=== PATIENT | female | born 1995 | race Caucasian/White ===

== ENCOUNTER → 2019-12-08 10:51 | Outpatient (BNVA) | payer SELFPAY | PROVIDERS: Visit Provider Nurse Practitioner Family | DX: J02.9 Acute pharyngitis, unspecified (principal) | CPT/HCPCS: 87071; 87880 ==

== ENCOUNTER → 2020-03-22 11:35 | Outpatient (BNVA) | payer SELFPAY | PROVIDERS: Visit Provider Nurse Practitioner Women's Health | DX: Z12.4 Encounter for screening for malignant neoplasm of cervix (principal); Z30.432 Encounter for removal of intrauterine contraceptive device | CPT/HCPCS: 88175 ==

== ENCOUNTER → 2020-04-18 09:34 | Outpatient (BNVA) | payer MEDICAID, SELFPAY | PROVIDERS: Visit Provider Registered Nurse | DX: Z32.01 Encounter for pregnancy test, result positive (principal) | CPT/HCPCS: 81025 ==

== ENCOUNTER → 2020-06-07 09:58 | Outpatient (BNVA) | payer MEDICAID, SELFPAY | PROVIDERS: Visit Provider Obstetrics & Gynecology | DX: O09.899 Supervision of other high risk pregnancies, unspecified trimester (principal) | CPT/HCPCS: 80053; 80307; 84315; 85027; 86592; 86762; 86803; 86850; 86900; 87340; 87806 ==

== ENCOUNTER → 2020-06-21 13:01 | Outpatient (BNVA) | payer MEDICAID, SELFPAY | PROVIDERS: Visit Provider Obstetrics & Gynecology | DX: O09.899 Supervision of other high risk pregnancies, unspecified trimester (principal); B37.3 Candidiasis of vulva and vagina; O21.9 Vomiting of pregnancy, unspecified; N89.8 Other specified noninflammatory disorders of vagina | CPT/HCPCS: 84315; 87210; 87491; 87591 ==

== ENCOUNTER → 2020-08-06 15:05 | Outpatient (BNVA) | payer MEDICAID, SELFPAY | PROVIDERS: Visit Provider Obstetrics & Gynecology | DX: Z34.92 Encounter for supervision of normal pregnancy, unspecified, second trimester (principal); Z3A.20 20 weeks gestation of pregnancy | CPT/HCPCS: 76805 ==

== ENCOUNTER → 2020-10-01 09:22 | Outpatient (BNVA) | payer MEDICAID, SELFPAY | PROVIDERS: Visit Provider Obstetrics & Gynecology | DX: O09.899 Supervision of other high risk pregnancies, unspecified trimester (principal) | CPT/HCPCS: 82950; 84315; 85027 ==

== ENCOUNTER 2020-11-12 10:21 | Outpatient (CLI) | payer MEDICAID, SELFPAY ==
[2020-11-12 10:34] VITALS: BP 108/68; PULSE 80
[2020-11-12 10:37] VITALS: RESP 16
[2020-11-12 10:49] VITALS: BP 98/58; PULSE 86
== END 2020-11-12 10:58 | disposition home or self-care (01) ==
LOC: OPOB 10:27 → OBGYN 10:27
PROVIDERS: Visit Provider Obstetrics & Gynecology
DX: O26.899 Other specified pregnancy related conditions, unspecified trimester (principal); Z3A.00 Weeks of gestation of pregnancy not specified; Z87.59 Personal history of other complications of pregnancy, childbirth and the puerperium
CPT/HCPCS: 59025; 84315

== ENCOUNTER → 2020-11-26 11:01 | Outpatient (BNVA) | payer MEDICAID, SELFPAY | PROVIDERS: Visit Provider Obstetrics & Gynecology | DX: O09.899 Supervision of other high risk pregnancies, unspecified trimester (principal); O09.293 Supervision of pregnancy with other poor reproductive or obstetric history, third trimester; N89.8 Other specified noninflammatory disorders of vagina; B37.3 Candidiasis of vulva and vagina | CPT/HCPCS: 84315; 87081; 87210 ==

== ENCOUNTER → 2020-11-30 13:15 | Outpatient (BNVA) | payer MEDICAID, SELFPAY | PROVIDERS: Visit Provider Obstetrics & Gynecology | DX: Z20.822 Contact with and (suspected) exposure to COVID-19 (principal) | CPT/HCPCS: 87635 ==

== ENCOUNTER 2020-12-05 08:11 | Day surgery (SDC) | payer MEDICAID, SELFPAY ==
[2020-12-05] VITALS (13 sets, daily range): BP systolic 106–136; BP diastolic 55–78; PULSE 65–96; RESP 16; TEMP 36.7; O2SAT 98; BMI 26.3
[2020-12-05 08:46] LABS: Basophils % 0.3 %; Eosinophils # 0.1 10^3/uL (0.0-0.8); Eosinophils % 0.4 %; Hematocrit 36.9 % (37.0-47.0); Lymphocytes % 12.8 %; Mean Corpuscular HGB Conc 32.5 g/dL (30.0-36.0); Mean Corpuscular Hemoglobin 29.6 pg (28.0-34.0); Mean Corpuscular Volume 91.1 fL (81-99); Mean Platelet Volume 11.6 fL (7.4-10.4); Monocytes # 1.1 10^3/uL (0.2-0.9); Monocytes % 6.6 %; Neutrophils # 12.52 10^3/uL (1.8-7.7); Neutrophils % 79.2 %; Nucleated Red Blood Cells % 0 %; Platelet Count 192 10^3/cmm (130-400); Red Blood Count 4.05 10^6/uL (4.1-5.3); Red Cell Distribution Width 13.2 % (12.1-15.1); White Blood Count 15.8 10^3/uL (4.0-10.0)
[2020-12-05] MEDS: terbutaline 1 mg/mL INJ 0.25 MG SUBCUT (10:16)
--- NOTE | 2020-12-05 10:28 | P.ANESASSM_ITS ---
Pre-Anesthetic Assessment Pre-Anesthetic Assessment: Height/Weight: Height 1.57 m Weight 65.317 kg Pulse Resp BP 65 16 106/59 12/05/20 10:06 12/05/20 08:25 12/05/20 10:06 Preop Diagnosis: breech presentation Proposed Procedure: Operation Date: 12/05/20 10:00 Proposed Procedures p Cephalic Eversion 64476 O32.1XX0(Not Applicable) - Timothy Guido MD Familial anesthetic complications: none Was Beta Carlos taken within 24 hours: N/A Was Clonidine taken within 24 hours: N/A Last intake: meal 1800 12/05/20 fluids 202912/05/20 Social: Social History: Tobacco Exam: Pre-Anes Outpt Exam: alert, oriented x 3 and regular rate & rhythm Airway: Submandibular: WNL Cervical ROM: WNL MP: 1 Dentition: Other (tongue piercing.) History/ROS: No significant history except as noted Pulmonary: Pulmonary: None reported CV/HEM: CV/HEM: None reported : : None reported Hepatic: Hepatic: None reported GI: GI: None reported Metabolic: Metabolic: None reported Musc/skel: Musc/skel: None reported Neuropsych: Neuropsych: None reported Anesthetic Plan: ASA status: 2 Anesthesia: Anesthesia Evaluation Risk of > 500 ml blood loss (7ml/kg in children): Yes, adequate IV access and fluids planned PFSH Anesthesia PFSH: Medical History Depression No pertinent past medical history neghx: htn,dm,thyroid,dvt/pe,herpes Denies any previous partner hx of herpes Surgical History No pertinent past surgical history Family History Grandfather Hypertension Paternal grandfather Social History Smoking and tobacco status: current some day smoker cigarettes Packs smoked per day: 1 [ Other cigarette details: Started age 14 ] Alcohol intake: current Substance/Drug Use: never Additional social history: - Tobacco use: Current everyday smoker; 1pk daily Alcohol use: Social Drug use: Denies Female Reproductive History: : 3 Data Anesthesia CBC & Chem 7: 12/05/20 08:35 Other Labs: Laboratory Results - last 48 hr 12/05/20 08:35 WBC 15.8 H RBC 4.05 L Hgb 12.0 Hct 36.9 L MCV 91.1 MCH 29.6 MCHC 32.5 RDW 13.2 Plt Count 192 MPV 11.6 H Neut % (Auto) 79.2 Lymph % (Auto) 12.8 [place] % (Auto) 6.6 Eos % (Auto) 0.4 Baso % (Auto) 0.3 Neut # (Auto) 12.52 H Lymph # (Auto) 2.0 [place] # (Auto) 1.1 H Eos # (Auto) 0.1 Baso # (Auto) 0.0 Nucleated RBC % (auto) 0 Nucleated RBCs # 0.0 Cardiac Studies: No Data to Display
--- NOTE | 2020-12-05 10:39 | PM.ACPR ---
Procedure/Consent Procedure Narrative: Date of Procedure: 12/05/2020 Date of Dictation: 12/05/2020 Pre-procedure Diagnosis: Complete breech presentation in third trimester at 37 weeks. Post-procedure Diagnosis: Complete breech presentation with successful version Procedure: External cephalic version under ultrasound guidance Provider: Dr. Timothy Guido Anesthesia: None Procedural Description: Patient is a 25-year-old female 3, para 1-1-0-1 with an LMP of 03/28/2020 and an EDC of 12/24/2020 based on 10-week ultrasound, which placed her at 37-2/7 weeks gestation today. She had been identified as having a complete breech presentation in the office on 12/03/2020. External cephalic version was discussed with her at that time and she is presenting for the procedure. Specific risks of the procedure were reviewed with her including potential for rupturing membranes, breathing on labor, bleeding from placental abruption, heart rate abnormalities, and need to proceed with an emergency section. Questions were answered. Consent form was signed. monitoring had been performed prior to the procedure with a category 1 tracing present. Bedside ultrasound was performed which confirmed complete breech presentation with spine to the maternal right. head was in the right upper quadrant. Patient received 0.25 mg of Brethine subcutaneously prior to starting the procedure. Anesthesia was present, on standby. Using ultrasound as a guide, a forward roll was attempted with the rotation of the fetus in a clockwise direction. The head was brought around to the left upper quadrant and then continued to be brought around into the left lower quadrant and eventually into the cephalic presentation. The buttocks was brought up out of the pelvis and also directed around during this process. Position was checked and heart rate identified multiple times during the process. The version was successful with the first attempt. Fetus was placed back onto monitoring and baseline heart rate is in the 150s with moderate variability and accelerations present. No contractions identified at this time. Post-procedure Status: Patient left to recover in satisfactory condition. She will be monitored for at least 30 minutes after the procedure. Disposition: Patient to be discharged to home. Follow-Up Appointments: Patient to keep next scheduled appointment in the office on Thursday, 12/10. Discharge Medications: Patient to resume her usual medications.
--- NOTE | 2020-12-05 10:42 | PC.NURSE ---
Procedure Note: External cephalic version performed. Anesthesia to room: 1025 Start: 1028, HR 150s. Ultrasound verification of placements: 1028,1030,1031,1031,1032 1032 baby is noted to be cephalic presentation per Dr. Guido. Patient placed back on monitors at 1032, HR 150s. Staff in room during procedure: Dr. Hay Christina, RN-assisting Soren Leo RN- ultrasound Conrad Elder, SOTO Azev[place], ACCOUNT MANAGER B2B
== END 2020-12-05 11:26 | disposition home or self-care (01) ==
LOC: OPOB 08:13 → OBGYN 08:17
PROVIDERS: Visit Provider Obstetrics & Gynecology
DX: O32.1XX0 Maternal care for breech presentation, not applicable or unspecified (principal); Z3A.37 37 weeks gestation of pregnancy
CPT/HCPCS: 59025; 59412; 85025; 96372; J3105

== ENCOUNTER 2020-12-13 17:35 | Inpatient (IN) | payer MEDICAID, SELFPAY ==
[2020-12-13] VITALS (20 sets, daily range): BP systolic 93–130; BP diastolic 50–86; PULSE 74–102; RESP 17; TEMP 36.6–36.8; BMI 26.4
[2020-12-13 19:11] LABS: Basophils % 0.2 %; Eosinophils # 0.1 10^3/uL (0.0-0.8); Eosinophils % 0.3 %; Hematocrit 34.6 % (37.0-47.0); Hemoglobin 11.5 g/dL (11.5-15.3); Lymphocytes # 2.5 10^3/uL (0.8-4.8); Lymphocytes % 14.4 %; Mean Corpuscular HGB Conc 33.2 g/dL (30.0-36.0); Mean Corpuscular Hemoglobin 29.8 pg (28.0-34.0); Mean Corpuscular Volume 89.6 fL (81-99); Mean Platelet Volume 12.1 fL (7.4-10.4); Monocytes # 1.1 10^3/uL (0.2-0.9); Monocytes % 6.3 %; Neutrophils # 13.71 10^3/uL (1.8-7.7); Neutrophils % 78.1 %; Nucleated Red Blood Cells % 0 %; Platelet Count 197 10^3/cmm (130-400); Red Blood Count 3.86 10^6/uL (4.1-5.3); Red Cell Distribution Width 13.2 % (12.1-15.1); White Blood Count 17.6 10^3/uL (4.0-10.0)
[2020-12-13] MEDS: miSOPROStol 100 mcg tablet 25 MCG VAGINAL (19:23)
[2020-12-13] MEDS: lactated ringers 1,000 ML 999 ML IV (21:17)
[2020-12-13] MEDS: dextrose 5%-lactated ringers 1,000 ML 125 ML IV (21:47)
[2020-12-14] VITALS (59 sets, daily range): BP systolic 97–140; BP diastolic 50–81; PULSE 54–111; RESP 17–18; TEMP 36.3–37.1; O2SAT 100
[2020-12-14] MEDS: dextrose 5%-lactated ringers 1,000 ML 125 ML IV (06:02)
[2020-12-14] MEDS: oxytocin 30 UNIT/500 ML BAG IV (08:13)
--- NOTE | 2020-12-14 10:20 | P.PN_ITS ---
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 position changes were made and the vagina flushed. Her cervix changed to 4/70/-3. Pitocin was started in the AM Labor: Station: -3 Amniotic Membrane Status: Intact Monitor Mode: External Contraction Pattern: Irregular Status: Category II Vitals/I&O/Wt Last Vital Signs Temp 97.3 F L 12/14/20 07:33 Pulse 77 12/14/20 09:33 Resp 17 12/13/20 19:00 BP 101/57 12/14/20 09:33 12/13/20 12/14/20 12/14/20 22:59 06:59 14:59 Intake Total 499.5 / 499.5 1125 / 1624.5 2.533 / 2.533 Balance 499.5 / 499.5 1125 / 1624.5 2.533 / 2.533 Weight last 48 hrs Weight 144 lb 8 oz Physical Exam : MANUAL OB EXAM: dilated 4 cm, effaced 75% and station high Data : 12/13/20 18:40 A&P Assessment and plan (1) Small for gestational age fetus affecting management of mother: The patient has pitocin induction started. She is slowly making change. heart tracing is category 1, without any decelerations. Baby is IUGR and a high station. Will wait until baby drops further to AROM for fear of p rolapsing cord. anticipate Status: Acute Qualifiers: Fetus number: single or unspecified fetus Trimester: third trimester Qualified Code(s): O36.5930 - Maternal care for other known or suspected poor fe nalini growth, third trimester, not applicable or unspecified (2) Supervision of other high-risk : Status: Acute (3) History of intrauterine , currently in third trimester: Status: Acute (4) Tobacco use in : Status: Acute Qualifiers: Trimester: first trimester Qualified Code(s): O99.331 - Smoking (tobacco) complicating , first trimester (5) Oligohydramnios: Status: Acute (6) IUGR (intrauterine growth restriction): Status: Acute Attestations Medical Necessity Statement*: The patient has been admitted for delivery Coding Level of Care Code Acute Acute Care Nurse for Chg Fwd Diagnoses Small for gestational age fetus affecting management of mother O36.5930 Fetus number: single or unspecified fetus Trimester: third trimester Supervision of other high-risk O09.899 History of intrauterine , currently in third trimester O09.293 Tobacco use in O99.331 Trimester: first trimester Oligohydramnios O41.00X0 IUGR (intrauterine growth restriction)
[2020-12-14] MEDS: lactated ringers 1,000 ML 999 ML IV (12:38)
--- NOTE | 2020-12-14 13:19 | P.ANESASSM_ITS ---
Pre-Anesthetic Assessment Pre-Anesthetic Assessment: Height/Weight: Height 1.57 m Weight 65.544 kg Temp Pulse Resp BP Pulse Ox 97.3 F L 71 17 118/73 100 12/14/20 07:33 12/14/20 13:17 12/13/20 19:00 12/14/20 13:17 12/14/20 13:06 Preop Diagnosis: breech presentation Was Beta Carlos taken within 24 hours: N/A Was Clonidine taken within 24 hours: N/A Social: Social History: Tobacco and No alcohol Exam: Pre-Anes Outpt Exam: alert, oriented x 3, clear to auscultation bilaterally and regular rate & rhythm Airway: Submandibular: WNL Cervical ROM: WNL MP: 2 Dentition: Full Anesthetic Plan: ASA status: 2 Anesthesia: Regional (specify below) (Labor epidural) Risk of > 500 ml blood loss (7ml/kg in children): No Meds/Allergies Current Medications: Current Medications Generic Name Dose Route Start Last Admin Trade Name Freq PRN Reason Stop Dose Admin Dextrose/Lactated Ringer's 1,000 mls @ 125 m ls/hr 12/13/20 18:56 12/14/20 06:02 Dextrose 5%-Lact ated Ringers IV 125 mls/hr .Q8H PRN Administration per label comment s Lactated Ringer's 1,000 mls @ 999 m ls/hr 12/13/20 19:00 12/13/20 21:47 Lactated Ringers IV 0 mls/hr .Q1H1M PRN Infusion Per L&D Rescitati on Protocol Oxytocin 30 unit in 500 ml s @ 1 mls/hr 12/14/20 07:00 12/14/20 09:15 Pitocin IV 5 milliunit/min .Q24H [place]ON 5 mls/hr Titration Protocol 1 MILLIUNIT/MIN Lactated Ringer's 1,000 mls @ 999 m ls/hr 12/14/20 12:23 12/14/20 12:38 Lactated Ringers IV 999 mls/hr .Q1H1M PRN Administration See label comment s PFSH Anesthesia PFSH: Medical History (Updated 12/14/20 @ 10:26 by Liz Mercado MD) Depression No pertinent past medical history neghx: htn,dm,thyroid,dvt/pe,herpes Denies any previous partner hx of herpes Surgical History No pertinent past surgical history Family History Grandfather Hypertension Paternal grandfather Social History Smoking and tobacco status: current some day smoker cigarettes Packs smoked per day: 1 [ Other cigarette details: Started age 14 ] Alcohol intake: current Additional social history: - Tobacco use: Current everyday smoker; 1pk daily Alcohol use: Social Drug use: Denies Female Reproductive History: Date of last menstrual period: 10/05/19 : 3 Data Anesthesia CBC & Chem 7: 12/13/20 18:40 Other Labs: Laboratory Results - last 48 hr 12/13/20 18:40 WBC 17.6 H RBC 3.86 L Hgb 11.5 Hct 34.6 L MCV 89.6 MCH 29.8 MCHC 33.2 RDW 13.2 Plt Count 197 MPV 12.1 H Neut % (Auto) 78.1 Lymph % (Auto) 14.4 [place] % (Auto) 6.3 Eos % (Auto) 0.3 Baso % (Auto) 0.2 Neut # (Auto) 13.71 H Lymph # (Auto) 2.5 [place] # (Auto) 1.1 H Eos # (Auto) 0.1 Baso # (Auto) 0.0 Nucleated RBC % (auto) 0 Nucleated RBCs # 0.0 Cardiac Studies: No Data to Display
--- NOTE | 2020-12-14 13:22 | ANES.PROC ---
Anesthesia Procedures Procedure/Date: 12/14/20 Epidural: Time Out Performed: Yes Consents Signed: Procedure Consent Consent: requested by attending/covering physician, from patient, risks and benefits reviewed and patient agrees to proceed Lumbar Level: L3-L4 Epidural position: sitting Epidural procedure: sterile prep of area, 1% lidocaine to numb the area, 18 g needle, negative for paresthesia passed, neg for paresthesia, test dose given, 1.5% xylocaine 1:200k epi, placed PCEA, no systemic response, sterile dressing applied and 0.2% Ropiavacaine @ mls/hr (13) Additional Comments: GURMEET at 5cm, cath at 10cm. Bolused 5mls 2% lido through needle.
--- NOTE | 2020-12-14 15:54 | PM.DELIVERY ---
Delivery Note: Date of delivery: December 14, 2020 Pre-delivery diagnoses: iup at 38 4/7 with oligohydramnios and iugr Procedure: Op report anesthesia: Epidural Delivering Physician: wyatt Estimated blood loss (mL): 10 Delivery: The patient had complete cervical dilation and began to push. The head delivered in the NIGEL position over an intact perineum under general anesthesia. The nose and mouth were bulb suctioned. The shoulders and body delivered atraumatically. The baby was placed onto the mother's abdomen. The cord was clamped and cut. The placenta delivered spontaneously. It was inspected and found to be intact. It was bilobed. Inspection of the perineum revealed small bilateral periurethral tears that were hemostatic.. Estimated blood loss 10 mL. Apgars on baby were 8 at 1 minute and 9 at 5 minutes. Weight of baby is pending. Mother and baby were stable post delivery. A&P Assessment and plan (1) Small for gestational age fetus affecting management of mother: Status: Acute Qualifiers: Fetus number: single or unspecified fetus Trimester: third trimester Qualified Code(s): O36.5930 - Maternal care for other known or suspected poor growth, third trimester, not applicable or unspecified (2) Supervision of other high-risk : Status: Acute (3) History of intrauterine , currently in third trimester: Status: Acute (4) Tobacco use in : Status: Acute Qualifiers: Trimester: first trimester Qualified Code(s): O99.331 - Smoking (tobacco) complicating , first trimester (5) Oligohydramnios: Status: Acute (6) IUGR (intrauterine growth restriction): Status: Acute Coding Level of Care Code Acute 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
--- NOTE | 2020-12-14 17:32 | PC.RESP ---
Smoking Cessation information sent to patient.
[2020-12-14] MEDS: docusate sodium 100 mg Capsule PO (18:19)
[2020-12-14] MEDS: ibuprofen 800 mg tablet PO (21:37)
[2020-12-15] VITALS (7 sets, daily range): BP systolic 99–126; BP diastolic 55–77; PULSE 56–67; RESP 15–17; TEMP 36.3–36.9
[2020-12-15 01:40] LABS: Hematocrit 31.4 % (37.0-47.0); Hemoglobin 10.3 g/dL (11.5-15.3); Mean Corpuscular HGB Conc 32.8 g/dL (30.0-36.0); Mean Corpuscular Volume 91.5 fL (81-99); Mean Platelet Volume 11.9 fL (7.4-10.4); Platelet Count 171 10^3/cmm (130-400); Red Blood Count 3.43 10^6/uL (4.1-5.3); Red Cell Distribution Width 13.3 % (12.1-15.1); White Blood Count 18.7 10^3/uL (4.0-10.0)
[2020-12-15] MEDS: docusate sodium 100 mg Capsule PO (09:09)
[2020-12-15] MEDS: prenatal vitamin Capsule 1 CAP PO (09:09)
[2020-12-15] MEDS: ibuprofen 800 mg tablet PO (09:09)
--- NOTE | 2020-12-15 14:57 | PM.DCS ---
Discharge Providers Date of Admission: 12/13/20 17:35 Date of Discharge: December 15, 2020 Attending Provider at Admission: Liz Mercado MD Attending Provider at Discharge: Don Marquez - PRE-DELIVERY DIAGNOSIS: 25-year-old 3 para 1-1-0-1 at 38 weeks and 4 days gestation Induction of labor for IUGR Tobacco use in Oligohydramnios POST-DELIVERY DIAGNOSIS: Vaginal delivery on 12/14/2020 PROCEDURE: Vaginal delivery on 12/14/2020 HOSPITAL COURSE: She underwent an uncomplicated vaginal delivery on 12/14/[address] Mercado---please refer to her delivery note for details of the procedure.. She did well on day 0 and was ambulating well, tolerating regular diet, voiding freely, passing flatus. She was breast-feeding without difficulty and bonding well with her daughter. Pain was well-controlled with by mouth pain medication. She denied nausea, vomiting, fever, chills, shortness of breath, leg pain. She had moderate vaginal bleeding. On day # 1 she continued to do well with stable vital signs and stable hemoglobin at 10.3. She was discharged home on day 1 in a stable condition, as she desired early discharge. Warning signs for endometritis, mastitis, DVT/PE were reviewed with her. Post delivery activity restrictions were also reviewed with her at all her questions were answered to her satisfaction. Plans on using the Mirena for contraception which will be placed after her 6-week visit EXAM AT DISCHARGE: Gen.: No acute distress Heart: S1-S2 heard, regular rate and rhythm Lungs: Clear to auscultation bilaterally Abdomen: Soft, fundus firm below umbilicus, Legs: No calf tenderness, trace bilateral pitting pedal edema. CONDITION AT DISCHARGE: Stable This documentation was created by [employer] correctional case records supervisor software (known for inherent correctional case records supervisor error). Every effort was made to assure accuracy of correctional case records supervisor. Any obvious errors or omissions should be clarified with the author of the document. This documentation was created by [employer] correctional case records supervisor software (known for inherent correctional case records supervisor error). Every effort was made to assure accuracy of correctional case records supervisor. Any obvious errors or omissions should be clarified with the author of the document. Diagnoses at Discharge Discharge Diagnosis (1) Small for gestational age fetus affecting management of mother: Status: Acute Qualifiers: Fetus number: single or unspecified fetus Trimester: third trimester Qualified Code(s): O36.5930 - Maternal care for other known or suspected poor growth, third trimester, not applicable or unspecified (2) Supervision of other high-risk : Status: Acute (3) History of intrauterine , currently in third trimester: Status: Acute (4) Tobacco use in : Status: Acute Qualifiers: Trimester: first trimester Qualified Code(s): O99.331 - Smoking (tobacco) complicating , first trimester (5) Oligohydramnios: Status: Acute (6) IUGR (intrauterine growth restriction): Status: Acute Reason for Visit Reason for Visit: iugr Discharge Data Data Completed and Pending: Labs from last 24 hours 12/15/20 01:32 WBC 18.7 H RBC 3.43 L Hgb 10.3 L Hct 31.4 L MCV 91.5 MCH 30.0 MCHC 32.8 RDW 13.3 Plt Count 171 MPV 11.9 H Vitals: Last Vital Signs Temp 98.1 F 12/15/20 10:14 Pulse 57 L 12/15/20 10:14 Resp 17 12/15/20 07:52 BP 117/77 12/15/20 10:14 Pulse Ox 100 12/14/20 13:06 Discharge Plan Discharge Patient Disposition: Home Condition: Stable Prescriptions: New ibuprofen 800 mg tablet 800 mg PO Q8H Qty: 30 RF: 0 docusate sodium 100 mg Capsule 100 mg PO BID PRN (Reason: constipation) Qty: 30 RF: 0 Discharge Orders: Discharge Order (Routine); Ordered 12/15/20 Ordered By: Don Ocampo Referrals: Timothy Guido MD [Physician] - (6-week ) Activity Restrictions/Additional Instructions: Pelvic rest for 6 weeks, no heavy lifting for 6 weeks Discharge Attestations Time Spent in Discharge Care*: greater than 30 min Quality Metrics Clinical Quality Measures During this hospital stay, did patient experience: None Coding Level of Care Code Acute Chg FW DC note Diagnoses Small for gestational age fetus affecting management of mother O36.5930 Fetus number: single or unspecified fetus Trimester: third trimester Supervision of other high-risk O09.899 History of intrauterine , currently in third trimester O09.293 Tobacco use in O99.331 Trimester: first trimester Oligohydramnios O41.00X0 IUGR (intrauterine growth restriction)
== END 2020-12-15 15:42 | disposition home or self-care (01) | DRG 806 ==
PROVIDERS: Admitting Provider Obstetrics & Gynecology; Visit Provider Obstetrics & Gynecology
DX: O36.5930 Maternal care for other known or suspected poor fetal growth, third trimester, not applicable or unspecified (principal); O41.03X0 Oligohydramnios, third trimester, not applicable or unspecified; Z37.0 Single live birth; O99.334 Smoking (tobacco) complicating childbirth; F17.210 Nicotine dependence, cigarettes, uncomplicated; Z3A.38 38 weeks gestation of pregnancy
CPT/HCPCS: 36415; 59025; 59409; 85025; 85027; J2795

== ENCOUNTER → 2021-01-28 09:51 | Outpatient (BNVA) | payer MEDICAID, SELFPAY | PROVIDERS: Visit Provider Obstetrics & Gynecology | DX: Z30.9 Encounter for contraceptive management, unspecified (principal) | CPT/HCPCS: 81025 ==

== ENCOUNTER → 2021-08-14 08:53 | Outpatient (BNVA) | payer MEDICAID, SELFPAY | PROVIDERS: Visit Provider Registered Nurse | DX: Z11.52 Encounter for screening for COVID-19 (principal) | CPT/HCPCS: 87635 ==